=== PATIENT | female | born 1955 | race Caucasian/White ===

== ENCOUNTER → 2018-08-02 | Outpatient (CLI) | payer MEDICARE, MEDICAID ==
[~2018-08-02] MED LIST: MOTRIN800 MG PO; VICODIN 5/500 505 MG PO
== END | disposition home or self-care (01) ==
LOC: RAD 14:52
DX: Z01.818 Encounter for other preprocedural examination (principal); J43.9 Emphysema, unspecified; I11.0 Hypertensive heart disease with heart failure; I50.9 Heart failure, unspecified; E11.9 Type 2 diabetes mellitus without complications; Z87.891 Personal history of nicotine dependence

== ENCOUNTER 2019-11-10 12:19 | Emergency (ER) | payer OTHER ==
[~2019-11-10] VITALS: Ht 165.1 cm; Wt 95.3 kg
[2019-11-10] MEDS ORDERED: METHOCARBAMOL500 M1 PO (14:33)
[2019-11-10] MEDS ORDERED: MEDROL DOSEPAK4 MG PO (14:33)
== END 2019-11-10 15:40 | disposition home or self-care (01) ==
LOC: ED 12:19
DX: S76.012A Strain of muscle, fascia and tendon of left hip, initial encounter (principal); M54.5 Low back pain; I11.0 Hypertensive heart disease with heart failure; I50.9 Heart failure, unspecified; Z88.0 Allergy status to penicillin; Z88.8 Allergy status to other drugs, medicaments and biological substances; W01.0XXA Fall on same level from slipping, tripping and stumbling without subsequent striking against object, initial encounter; Y93.01 Activity, walking, marching and hiking; Y92.89 Other specified places as the place of occurrence of the external cause; Y99.8 Other external cause status

== ENCOUNTER 2020-02-03 08:58 | Inpatient (IN) | payer OTHER ==
[~2020-02-03] VITALS: Ht 167.6 cm; Wt 99.0 kg
[~2020-02-03 08:58] MED LIST changes: +MEDROL DOSEPAK4 MG PO; +METHOCARBAMOL500 M1 PO
[2020-02-03 09:01] VITALS: BP 126/55
[2020-02-03 09:29] LABS: BASO # 0.1 10*3/uL (0.0-0.1); BASO % 0.6 % (0.0-1.0); EOS % 8.9 % (1.0-4.0); HEMOGLOBIN 11.9 g/dl (12.0-16.0); LYMPH # 2.8 10*3/uL (1.3-4.4); LYMPH % 25.6 % (27.0-41.0); MEAN CELL VOLUME 97.4 fl (81.0-99.0); MEAN CORPUSCULAR HGB 30.5 pg (27.0-31.0); MEAN CORPUSCULAR HGB CONC 31.3 g/dl (33.0-37.0); MEAN PLATELET VOLUME 9.3 fl (9.6-12.3); MONO # 0.5 10*3/uL (0.1-1.0); MONO % 4.7 % (3.0-9.0); NEUT # 6.6 10*3/uL (2.3-7.9); NEUT % 59.7 % (47.0-73.0); PLATELET COUNT AUTOMATED 259 10*3/uL (130-400); RED CELL DISTRI WIDTH 13.5 % (0-14.5)
[2020-02-03 09:39] LABS: ACT PARTIAL THROMBO TIME 24.4 SECONDS (20.0-32.1)
[2020-02-03 09:46] LABS: ALBUMIN 3.5 gm/dl (3.1-4.5); ALKALINE PHOSPHATASE 104 U/L (45-117); BUN 15 mg/dl (7-24); CHLORIDE 111 mmol/L (98-107); CREATININE 1.16 mg/dL (0.55-1.02); POTASSIUM 4.3 mmol/L (3.5-5.1); SGOT/AST 44 IU/L (3-35); SGPT/ALT 38 U/L (12-78); SODIUM 143 mmol/L (136-145); TOTAL PROTEIN 6.9 gm/dL (6.4-8.2)
[2020-02-03 09:47] LABS: TROPONIN I < 0.015 ng/ml (<0.045)
[2020-02-03 10:30] VITALS: BP 121/78
[2020-02-03] MEDS ORDERED: PREDNISONE20 M1 PO (11:09)
[2020-02-03] MEDS ORDERED: VIBRAMYCIN100 MG PO (11:10)
[2020-02-03] MEDS ORDERED: NORCO 10-325 T1 EACH PO (11:11)
[2020-02-03 11:30] VITALS: BP 128/71
[2020-02-03 12:40] VITALS: BP 160/78
[2020-02-03] MEDS ORDERED: PROVENTIL HFA6.7 GM INH (13:16)
[2020-02-03] MEDS ORDERED: WELLBUTRIN SR150 MG PO (13:16)
[2020-02-03] MEDS ORDERED: ALLOPURINOL300 MG PO (13:17)
[2020-02-03] MEDS ORDERED: LITHIUM CARBON300 MG PO (13:17)
[2020-02-03] MEDS ORDERED: BUSPAR5 MG PO (13:18)
[2020-02-03] MEDS ORDERED: CELEXA20 MG PO (13:18)
[2020-02-03] MEDS ORDERED: METOPROLOL SUC100 M1 PO (13:18)
[2020-02-03] MEDS ORDERED: ASPIRIN ADULT L81 M1 PO (13:19)
[2020-02-03] MEDS ORDERED: COZAAR25 M1 PO (13:19)
[2020-02-03] MEDS ORDERED: LASIX20 MG PO (13:23)
[2020-02-03] MEDS ORDERED: POTASSIUM CHLO20 ME3 PO (13:24)
[2020-02-03] MEDS ORDERED: GLIPIZIDE10 M2 PO (13:28)
[2020-02-03 16:00] VITALS: BP 130/48
[2020-02-03 20:00] VITALS: BP 141/51
[2020-02-04] VITALS: BP 136/55
[2020-02-04 06:02] LABS: ALBUMIN 3.4 gm/dl (3.1-4.5); ALKALINE PHOSPHATASE 86 U/L (45-117); BASO % 0.1 % (0.0-1.0); BUN 15 mg/dl (7-24); CHLORIDE 109 mmol/L (98-107); CREATININE 0.99 mg/dL (0.55-1.02); HEMATOCRIT 35.5 % (37.0-47.0); HEMOGLOBIN 11.5 g/dl (12.0-16.0); LYMPH # 1.8 10*3/uL (1.3-4.4); LYMPH % 11.9 % (27.0-41.0); MEAN CELL VOLUME 94.9 fl (81.0-99.0); MEAN CORPUSCULAR HGB 30.7 pg (27.0-31.0); MEAN CORPUSCULAR HGB CONC 32.4 g/dl (33.0-37.0); MEAN PLATELET VOLUME 9.6 fl (9.6-12.3); MONO # 0.5 10*3/uL (0.1-1.0); MONO % 3.5 % (3.0-9.0); NEUT # 12.6 10*3/uL (2.3-7.9); NEUT % 83.8 % (47.0-73.0); PLATELET COUNT AUTOMATED 293 10*3/uL (130-400); POTASSIUM 4.4 mmol/L (3.5-5.1); RED BLOOD COUNT 3.74 10*6/uL (4.10-5.10); RED CELL DISTRI WIDTH 13.4 % (0-14.5); SGOT/AST 21 IU/L (3-35); SGPT/ALT 32 U/L (12-78); SODIUM 141 mmol/L (136-145); TOTAL PROTEIN 6.7 gm/dL (6.4-8.2); WHITE BLOOD COUNT 15.1 10*3/uL (4.8-10.8)
[2020-02-04 08:00] VITALS: BP 132/60
[2020-02-04 12:00] VITALS: BP 134/62
[2020-02-04 16:00] VITALS: BP 128/66
[2020-02-04 20:00] VITALS: BP 115/59
[2020-02-04 21:01] VITALS: BP 138/74
[2020-02-05] VITALS: BP 140/68
[2020-02-05 05:53] VITALS: BP 134/70
[2020-02-05 06:50] LABS: BASO % 0.2 % (0.0-1.0); EOS % 0.1 % (1.0-4.0); HEMATOCRIT 36.2 % (37.0-47.0); HEMOGLOBIN 11.6 g/dl (12.0-16.0); LYMPH # 2.8 10*3/uL (1.3-4.4); LYMPH % 13.9 % (27.0-41.0); MEAN CELL VOLUME 95.5 fl (81.0-99.0); MEAN CORPUSCULAR HGB 30.6 pg (27.0-31.0); MEAN PLATELET VOLUME 9.4 fl (9.6-12.3); NEUT % 80.1 % (47.0-73.0); PLATELET COUNT AUTOMATED 299 10*3/uL (130-400); RED BLOOD COUNT 3.79 10*6/uL (4.10-5.10); RED CELL DISTRI WIDTH 13.5 % (0-14.5)
[2020-02-05 06:55] LABS: BUN 26 mg/dl (7-24); CHLORIDE 109 mmol/L (98-107); CREATININE 0.99 mg/dL (0.55-1.02); POTASSIUM 4.2 mmol/L (3.5-5.1); SODIUM 138 mmol/L (136-145)
[2020-02-05 08:00] VITALS: BP 145/52
[2020-02-05] MEDS ORDERED: PREDNISONE10 MG PO (11:57)
[2020-02-05] MEDS ORDERED: LEVAQUIN500 M2 PO (11:57)
[2020-02-05] MEDS ORDERED: CETIRIZINE HYDR10 MG PO (11:57)
[2020-02-05] MEDS ORDERED: Ipratropium Brom3 ML NEB (11:57)
[2020-02-05 12:00] VITALS: BP 136/60
== END 2020-02-05 13:00 | disposition home or self-care (01) | DRG 682 ==
LOC: ED 08:58 → EDHOLD 11:46 → 4E 11:46
PROVIDERS: Emergency Medicine; Student in an Organized Health Care Education/Training Program; ADMIT Internal Medicine
DX: N17.0 Acute kidney failure with tubular necrosis (principal); J96.01 Acute respiratory failure with hypoxia; J44.1 Chronic obstructive pulmonary disease with (acute) exacerbation; I50.22 Chronic systolic (congestive) heart failure; E87.8 Other disorders of electrolyte and fluid balance, not elsewhere classified; F32.9 Major depressive disorder, single episode, unspecified; R74.0 Nonspecific elevation of levels of transaminase and lactic acid dehydrogenase [LDH]; M54.2 Cervicalgia; G89.29 Other chronic pain; E66.9 Obesity, unspecified; E11.65 Type 2 diabetes mellitus with hyperglycemia; F41.9 Anxiety disorder, unspecified; M10.9 Gout, unspecified; F43.10 Post-traumatic stress disorder, unspecified; F17.210 Nicotine dependence, cigarettes, uncomplicated; D64.9 Anemia, unspecified; Z88.0 Allergy status to penicillin; Z88.8 Allergy status to other drugs, medicaments and biological substances; Z79.899 Other long term (current) drug therapy; Z82.49 Family history of ischemic heart disease and other diseases of the circulatory system; Z79.82 Long term (current) use of aspirin; Z71.6 Tobacco abuse counseling; Z68.34 Body mass index [BMI] 34.0-34.9, adult

== ENCOUNTER 2020-03-30 22:16 | Inpatient (IN) | payer OTHER ==
[~2020-03-30] VITALS: Ht 170.1 cm; Wt 96.2 kg
[~2020-03-30 22:16] MED LIST changes: +ALLOPURINOL300 MG PO; +ASPIRIN ADULT L81 M1 PO; +BUSPAR5 MG PO; +CELEXA20 MG PO; +CETIRIZINE HYDR10 MG PO; +COZAAR25 M1 PO; +GLIPIZIDE10 M2 PO; +Ipratropium Brom3 ML NEB; +LASIX20 MG PO; +LEVAQUIN500 M2 PO; +LITHIUM CARBON300 MG PO; +METOPROLOL SUC100 M1 PO; +NORCO 10-325 T1 EACH PO; +POTASSIUM CHLO20 ME3 PO; +PREDNISONE10 MG PO; +PREDNISONE20 M1 PO; +PROVENTIL HFA6.7 GM INH; +VIBRAMYCIN100 MG PO; +WELLBUTRIN SR150 MG PO
--- NOTE | 2020-03-30 22:18 | NUR ---
Pt placed on BiPap 12/5 and FiO2 50%. RR are in the MID 30's. Double duoneb tx started through the BiPap. BBS wheeze
[2020-03-30 22:25] VITALS: BP 164/69
[2020-03-30 22:56] LABS: BASO # 0.1 10*3/uL (0.0-0.1); BASO % 0.7 % (0.0-1.0); EOS # 1.5 10*3/uL (0.0-0.4); EOS % 9.9 % (1.0-4.0); HEMATOCRIT 36.1 % (37.0-47.0); LYMPH # 3.1 10*3/uL (1.3-4.4); LYMPH % 20.8 % (27.0-41.0); MEAN CORPUSCULAR HGB 31.5 pg (27.0-31.0); MEAN CORPUSCULAR HGB CONC 32.4 g/dl (33.0-37.0); MEAN PLATELET VOLUME 9.4 fl (9.6-12.3); MONO # 0.7 10*3/uL (0.1-1.0); MONO % 4.6 % (3.0-9.0); NEUT # 9.4 10*3/uL (2.3-7.9); NEUT % 63.5 % (47.0-73.0); PLATELET COUNT AUTOMATED 269 10*3/uL (130-400); RED BLOOD COUNT 3.72 10*6/uL (4.10-5.10); RED CELL DISTRI WIDTH 14.2 % (0-14.5); WHITE BLOOD COUNT 14.9 10*3/uL (4.8-10.8)
[2020-03-30 23:05] VITALS: BP 168/80
[2020-03-30 23:13] LABS: ALKALINE PHOSPHATASE 100 U/L (45-117); BUN 26 mg/dl (7-24); CHLORIDE 107 mmol/L (98-107); CREATININE 1.07 mg/dL (0.55-1.02); POTASSIUM 4.1 mmol/L (3.5-5.1); SGOT/AST 40 IU/L (3-35); SGPT/ALT 40 U/L (12-78); SODIUM 141 mmol/L (136-145)
[2020-03-30 23:15] LABS: TROPONIN I < 0.015 ng/ml (<0.045)
[2020-03-30 23:16] LABS: ACT PARTIAL THROMBO TIME 22.6 SECONDS (20.0-32.1)
[2020-03-30 23:30] LABS: ABG BASE EXCESS -2.5 mmol/L (-2.0-2.0); ARTERIAL BLOOD GAS PH 7.302 (7.35-7.45)
--- NOTE | 2020-03-30 23:37 | NUR ---
SLEEPING. IN NO APPARENT DISTRESS.
[2020-03-31] VITALS: BP 116/61
--- NOTE | 2020-03-31 00:24 | NUR ---
DECREASED O2 TO 35%. SPO2 97, HR 68, BIPAP 12/5, VT575, F16, LEAK 11. WILL CONTINUE TO MONITOR
[2020-03-31 01:00] VITALS: BP 116/61
--- NOTE | 2020-03-31 01:00 | NUR ---
A 64, admitted to , under the services of MORRO Sharp DO with a diagnosis of RESPIRATORY FAILURE, COPD EXACERBATION ACUTE ON CHRONIC. Chief complaint is SHORTNESS OF BREATH/WHEEZING. Patient arrived via ambulance from ER. Monitor applied. Initial assessment completed. Vital signs taken and recorded. MORRO SHARP DO notified of admission to the unit. Orders received. See assessment for past medical history, medications and allergies. Patient and/or family oriented to unit. visitation policy reviewed. Clothing/patient valuable form completed. LOUISE BAE
[2020-03-31 06:00] LABS: BUN 27 mg/dl (7-24); CHLORIDE 110 mmol/L (98-107); CREATININE 1.09 mg/dL (0.55-1.02); POTASSIUM 4.7 mmol/L (3.5-5.1); SODIUM 141 mmol/L (136-145)
[2020-03-31 06:14] LABS: BASO % 0.3 % (0.0-1.0); EOS # 0.1 10*3/uL (0.0-0.4); EOS % 0.4 % (1.0-4.0); HEMATOCRIT 34.4 % (37.0-47.0); LYMPH # 1.3 10*3/uL (1.3-4.4); LYMPH % 10.4 % (27.0-41.0); MEAN CELL VOLUME 97.5 fl (81.0-99.0); MEAN CORPUSCULAR HGB 31.2 pg (27.0-31.0); MEAN PLATELET VOLUME 9.8 fl (9.6-12.3); MONO # 0.1 10*3/uL (0.1-1.0); MONO % 0.7 % (3.0-9.0); NEUT # 11.2 10*3/uL (2.3-7.9); NEUT % 87.8 % (47.0-73.0); PLATELET COUNT AUTOMATED 242 10*3/uL (130-400); RED BLOOD COUNT 3.53 10*6/uL (4.10-5.10); RED CELL DISTRI WIDTH 14.1 % (0-14.5); WHITE BLOOD COUNT 12.7 10*3/uL (4.8-10.8)
--- NOTE | 2020-03-31 06:31 | NUR ---
ATTEMPTED TO CONSULT DR. SALAZAR FOR CONSULT WITH NO ANSWER. LEFT MESSAGE FOR HIM TO RETURN CALL.
[2020-03-31 08:00] VITALS: BP 128/70
--- NOTE | 2020-03-31 09:00 | NUR ---
BIPAP REMOVED FOR MEDICATION ADMINISTRATION/SIPS OF WATER. POX DOWN FROM 94% TO 87% ROOM AIR. PLACED BIPAP BACK ON, POX UP TO 93%.
--- NOTE | 2020-03-31 10:00 | NUR ---
PRN PO TYLENOL NOT EFFECTIVE FOR HEADACHE, PER PATIENT.
--- NOTE | 2020-03-31 10:27 | NUR ---
BIPAP REMOVED FOR BREAKFAST. APPLIED 3L NC O2, POX 97% DURING BREAKFAST.
--- NOTE | 2020-03-31 11:49 | NUR ---
PER PATIENT, HEADACHE IS GETTING WORSE. C/O MIGRAINE PAIN TO RIGHT SIDE OF HEAD AND THROBBING, PHONING PHYSICIAN FOR ORDERS.
[2020-03-31 12:00] VITALS: BP 126/56
--- NOTE | 2020-03-31 12:12 | NUR ---
MEDICATED WITH PRN PO FIORCET FOR MIGRAINE HEADACHE PAIN.
--- NOTE | 2020-03-31 13:00 | NUR ---
PRN PO FIORCET NOT EFFECTIVE AT ALL, PER PATIENT.
[2020-03-31 13:41] LABS: ABG BASE EXCESS -3.4 mmol/L (-2.0-2.0); ARTERIAL BLOOD GAS PH 7.362 (7.35-7.45)
--- NOTE | 2020-03-31 15:53 | NUR ---
ADMINISTERED IV BENADRYL WITH IV TORADOL AND STARTED 2GM MAG RUN FOR MIGRAINE HEADACHE SYMPTOMS AT THIS TIME.
[2020-03-31 16:00] VITALS: BP 126/54
[2020-03-31 16:10] LABS: ARTERIAL BLOOD GAS PH 7.353 (7.35-7.45)
--- NOTE | 2020-03-31 18:24 | NUR ---
SPOKE WITH DR HALL REGARDING ORDER ON EMAR.ORDER RECIEVED.
--- NOTE | 2020-03-31 18:50 | NUR ---
Patient resting quietly with no c/o discomfort. Respirations easy and regular. Vital signs stable. No overt distress. CATRINA PAL
[2020-03-31 20:00] VITALS: BP 125/59
--- NOTE | 2020-03-31 22:58 | NUR ---
PATIENT MEDICATED WITH A ONE TIME DOSE OF MORPHINE FOR COMPLAINTS OF A HEADACHE. WILL MONITOR FOR EFFECTIVENESS. CALL LIGHT IN REACH.
--- NOTE | 2020-03-31 23:42 | NUR ---
MORPHINE EFFECTIVE AT THIS TIME. PATIENT IN BED WITH EYES CLOSED ON BIPAP. NO SIGNS OR SYMPTOMS OF DISTRESS NOTED. WILL CONTINUE TO MONITOR. CALL LIGHT IN REACH.
[2020-04-01] VITALS: BP 121/58
[2020-04-01 02:30] VITALS: BP 124/59
--- NOTE | 2020-04-01 02:38 | NUR ---
DR. NGUYEN NOTIFIED THAT PATIENT IS COMPLAINING OF CHEST PAIN RATED 4/10. CO BELCHING AND PAIN WORSE WHEN BREATHING IN. O2 SAT 94% ON 3L 02 N/C, B/P 124/59. DR. NGUYEN PUTTING ORDERS IN.
[2020-04-01 06:09] LABS: BUN 24 mg/dl (7-24); CHLORIDE 111 mmol/L (98-107); CREATININE 0.95 mg/dL (0.55-1.02); POTASSIUM 4.8 mmol/L (3.5-5.1); SODIUM 141 mmol/L (136-145)
[2020-04-01 06:18] LABS: BASO % 0.1 % (0.0-1.0); HEMATOCRIT 36.4 % (37.0-47.0); LYMPH # 1.9 10*3/uL (1.3-4.4); LYMPH % 9.2 % (27.0-41.0); MEAN CELL VOLUME 98.1 fl (81.0-99.0); MEAN CORPUSCULAR HGB CONC 31.6 g/dl (33.0-37.0); MEAN PLATELET VOLUME 9.7 fl (9.6-12.3); MONO # 1.2 10*3/uL (0.1-1.0); MONO % 5.7 % (3.0-9.0); NEUT # 17.7 10*3/uL (2.3-7.9); NEUT % 84.4 % (47.0-73.0); PLATELET COUNT AUTOMATED 311 10*3/uL (130-400); RED BLOOD COUNT 3.71 10*6/uL (4.10-5.10); RED CELL DISTRI WIDTH 14.3 % (0-14.5)
--- NOTE | 2020-04-01 07:00 | NUR ---
ASSUMED CARE OF PATIENT AT THIS TIME. RESPS EASY AND REGULAR. ASSESSMENT COMPLETE. VSS. BIPAP IN PLACE. CALL LIGHT IN REACH. WILL MONITOR.
--- NOTE | 2020-04-01 07:30 | NUR ---
PLACED PT ON BIPAP PER HER REQUEST TO GIVE HER HER AEROSOL TX.
[2020-04-01 08:00] VITALS: BP 130/64
--- NOTE | 2020-04-01 09:00 | NUR ---
Elementary E[employer] Teacher in to talk to patient. Patient states lives at home with daughter. There are no steps in the home. Physician: ravin benitez, patient wants to have an appointment with [facility] Home health services: none at present Patient's level of ADLs: INDEPENDENT Patient has working utilities: all working DME: nebulizer, no home oxygen Follow-up physician's appointment after d/c: will be made by hospitalist nurse director upon discharge Does patient want to access PORTAL?: no Discharge plan discussed with patient, she states she lives at home with her daughter, patient is independent in adls and ambulation, she states she has anebulizer, no home oxygen, she will return home when medically stable, patient states her daughter will transport her home when she is medically stable for discharge. KEITH GONZALEZ
[2020-04-01 12:00] VITALS: BP 148/68
--- NOTE | 2020-04-01 12:57 | NUR ---
PT RESTING IN BED WITH NO COMPLAINTS. CALL LIGHT IN REACH. WILL CONTINUE TO MONITOR.
--- NOTE | 2020-04-01 13:47 | NUR ---
PT RESTING IN BED WITH NO COMPLAINTS AT THIS TIME. CALL LIGHT IN REACH. WILL MONITOR.
--- NOTE | 2020-04-01 15:12 | NUR ---
24 HR chart check completed.
[2020-04-01 16:00] VITALS: BP 125/50
--- NOTE | 2020-04-01 19:29 | NUR ---
24 HR chart check completed.
[2020-04-01 20:00] VITALS: BP 116/47
--- NOTE | 2020-04-01 20:00 | NUR ---
ASSESSED PT AND FOUND HER RIGHT ANTECUBITCAL TO BE SWOLLEN, BRUISED, AND HARDENED. PT STATED THAT'S WHERE HER LAST IV SITE WAS. OFFERED HER ICE AND PT STATED SHE DID NOT WANT ANY ICE AT THIS TIME. WILL CONTINUE TO MONITOR PT'S ARM.
--- NOTE | 2020-04-01 20:08 | NUR ---
PRN TYLENOL GIVEN FOR COMPLAINT OF A HEADACHE. WILL CONTINUE TO MONITOR EFFECTIVENESS.
--- NOTE | 2020-04-01 21:08 | NUR ---
PRN TYLENOL WAS NOT EFFECTIVE. WILL CALL DR. GLEZ AND SEE IF ANYTHING ELSE COULD BE GIVEN.
--- NOTE | 2020-04-01 22:17 | NUR ---
CALLED AND NOTIFIED DR. GLEZ THAT PT HAS A HEADACHE AND TYLENOL HAS NOT HELPED HER AT ALL. HE STATED HE WOULD TAKE A LOOK AT HER CHART AND SEE WHAT HE COULD GIVE HER. AWAITING ORDERS.
--- NOTE | 2020-04-01 22:25 | NUR ---
ONE TIME DOSE TORADOL GIVEN FOR A HEADACHE. WILL REASSESS EFFECTIVENESS.
--- NOTE | 2020-04-01 22:45 | NUR ---
Pt placed on BiPap 16/8 and FiO2 35%. Alarms on and audible.
--- NOTE | 2020-04-01 22:59 | NUR ---
PT STATED THAT THE TORADOL HAS HELPED HER HEADACHE. SHE SAID IT DOES NOT HURT BAD. ONE TIME DOSE OF TORADOL WAS EFFECTIVE.
[2020-04-02] VITALS: BP 128/55
--- NOTE | 2020-04-02 00:07 | NUR ---
PATIENT SLEEPING. WEARING BIPAP, ON CONTINUOUS POX, SPO2 99%. CALL LIGHT IN REACH, BED IN LOW, LOCKED POS.
[2020-04-02 08:00] VITALS: BP 154/84
--- NOTE | 2020-04-02 08:42 | NUR ---
MEDICATED WITH PRN PO TYLENOL FOR C/O HEADACHE.
--- NOTE | 2020-04-02 09:00 | NUR ---
case management visits with patient, discussed with her VNA and educated her ont he services they provide, patient states she does not need any VNA at this time, case management will follow
--- NOTE | 2020-04-02 09:25 | NUR ---
PRN PO TYLENOL NOT EFFECTIVE, PER PATIENT.
[2020-04-02 12:00] VITALS: BP 147/70
--- NOTE | 2020-04-02 13:00 | NUR ---
PULSE OX ON R/A AT REST 92%. HEART RATE 85. PULSE OX ON R/A WITH PT. AMBULATING IN [place] WAS 89% TO 91%. HEART RATE 103. PT. RETURNED TO ROOM, RESTING ON BED R/A, SAT 93%, HEART RATE 100. PRE B/P 147/70, POST B/P 149/57, JACE STEWART AND RN NOTIFIED OF RESULTS.
[2020-04-02 13:25] LABS: BASO % 0.2 % (0.0-1.0); EOS % 0.2 % (1.0-4.0); HEMATOCRIT 37.2 % (37.0-47.0); LYMPH # 1.6 10*3/uL (1.3-4.4); LYMPH % 11.6 % (27.0-41.0); MEAN CELL VOLUME 98.2 fl (81.0-99.0); MEAN CORPUSCULAR HGB 31.1 pg (27.0-31.0); MEAN CORPUSCULAR HGB CONC 31.7 g/dl (33.0-37.0); MEAN PLATELET VOLUME 9.5 fl (9.6-12.3); MONO # 0.2 10*3/uL (0.1-1.0); MONO % 1.4 % (3.0-9.0); NEUT % 85.8 % (47.0-73.0); PLATELET COUNT AUTOMATED 265 10*3/uL (130-400); RED BLOOD COUNT 3.79 10*6/uL (4.10-5.10); RED CELL DISTRI WIDTH 14.7 % (0-14.5)
[2020-04-02] MEDS ORDERED: LEVAQUIN750 M1 PO (14:33)
[2020-04-02] MEDS ORDERED: PREDNISONE10 MG PO (14:33)
--- NOTE | 2020-04-02 15:33 | NUR ---
Discharge instructions reviewed with patient. Patient receptive and verbalizes understanding. Follow-up care arranged. Written instructions given to patient. PATIENT AWAITING RIDE HOME WITH HER DAUGHTER FOR DISCHARGE. ITZEL SADLER
--- NOTE | 2020-04-02 16:00 | NUR ---
PATIENT DISCHARGED TO FRONT ED LOBBY BY WHEELCHAIR, ACCOMPANIED BY [facility], FOR TRANSPORT HOME BY PRIVATE VEHICLE WITH HER DAUGHTER.
[2020-04-03] MEDS ORDERED: DOXYCYCLINE100 M3 PO (15:10)
== END 2020-04-02 15:34 | disposition home or self-care (01) | DRG 871 ==
LOC: ED 22:16 → EDHOLD 03-31 00:22 → 4E 03-31 00:22
PROVIDERS: Emergency Medicine Emergency Medical Services; Internal Medicine; Internal Medicine Critical Care Medicine; ADMIT Internal Medicine
PROC: 5A09357 Assistance with Respiratory Ventilation, Less than 24 Consecutive Hours, Continuous Positive Airway Pressure (ICD-10-PCS; principal; 2020-03-30)
PROC: 5A09357 Assistance with Respiratory Ventilation, Less than 24 Consecutive Hours, Continuous Positive Airway Pressure (ICD-10-PCS; 2020-03-31)
PROC: 5A09357 Assistance with Respiratory Ventilation, Less than 24 Consecutive Hours, Continuous Positive Airway Pressure (ICD-10-PCS; 2020-04-01)
PROC: 5A09357 Assistance with Respiratory Ventilation, Less than 24 Consecutive Hours, Continuous Positive Airway Pressure (ICD-10-PCS; 2020-04-02)
DX: A41.9 Sepsis, unspecified organism (principal); J96.21 Acute and chronic respiratory failure with hypoxia; J96.22 Acute and chronic respiratory failure with hypercapnia; J15.212 Pneumonia due to Methicillin resistant Staphylococcus aureus; J44.1 Chronic obstructive pulmonary disease with (acute) exacerbation; E87.2 Acidosis; I50.22 Chronic systolic (congestive) heart failure; J44.0 Chronic obstructive pulmonary disease with (acute) lower respiratory infection; R65.20 Severe sepsis without septic shock; E11.65 Type 2 diabetes mellitus with hyperglycemia; E83.41 Hypermagnesemia; G89.29 Other chronic pain; M54.2 Cervicalgia; F32.9 Major depressive disorder, single episode, unspecified; R74.0 Nonspecific elevation of levels of transaminase and lactic acid dehydrogenase [LDH]; F43.10 Post-traumatic stress disorder, unspecified; E66.9 Obesity, unspecified; Z68.33 Body mass index [BMI] 33.0-33.9, adult; Z95.810 Presence of automatic (implantable) cardiac defibrillator; Z88.0 Allergy status to penicillin; Z88.8 Allergy status to other drugs, medicaments and biological substances; Z98.51 Tubal ligation status; Z82.49 Family history of ischemic heart disease and other diseases of the circulatory system; Z79.899 Other long term (current) drug therapy; Z79.84 Long term (current) use of oral hypoglycemic drugs

== ENCOUNTER 2020-06-02 20:05 | Emergency (ER) | payer OTHER ==
[~2020-06-02] VITALS: Ht 167.6 cm; Wt 90.7 kg
[~2020-06-02 20:05] MED LIST changes: +DOXYCYCLINE100 M3 PO; +LEVAQUIN750 M1 PO
[2020-06-02 21:07] LABS: BASO # 0.1 10*3/uL (0.0-0.1); BASO % 0.7 % (0.0-1.0); EOS # 1.1 10*3/uL (0.0-0.4); HEMATOCRIT 34.4 % (37.0-47.0); LYMPH # 2.9 10*3/uL (1.3-4.4); LYMPH % 26.5 % (27.0-41.0); MEAN CELL VOLUME 95.6 fl (81.0-99.0); MEAN CORPUSCULAR HGB 31.4 pg (27.0-31.0); MEAN CORPUSCULAR HGB CONC 32.8 g/dl (33.0-37.0); MEAN PLATELET VOLUME 9.4 fl (9.6-12.3); MONO # 0.6 10*3/uL (0.1-1.0); MONO % 5.4 % (3.0-9.0); NEUT # 6.2 10*3/uL (2.3-7.9); NEUT % 57.2 % (47.0-73.0); PLATELET COUNT AUTOMATED 266 10*3/uL (130-400); RED CELL DISTRI WIDTH 13.5 % (0-14.5); WHITE BLOOD COUNT 10.9 10*3/uL (4.8-10.8)
[2020-06-02 21:17] LABS: ACT PARTIAL THROMBO TIME 24.5 SECONDS (20.0-32.1); INTERNATIONAL NORM RATIO 0.9 (2.0-3.5)
[2020-06-02 21:23] LABS: ALBUMIN 3.7 gm/dl (3.1-4.5); ALKALINE PHOSPHATASE 92 U/L (45-117); BUN 26 mg/dl (7-24); CHLORIDE 110 mmol/L (98-107); CREATININE 1.22 mg/dL (0.55-1.02); LIPASE 171 U/L (73-393); POTASSIUM 3.9 mmol/L (3.5-5.1); SGOT/AST 22 IU/L (3-35); SGPT/ALT 27 U/L (12-78); SODIUM 142 mmol/L (136-145); TOTAL PROTEIN 6.6 gm/dL (6.4-8.2)
[2020-06-02 21:26] LABS: TROPONIN I < 0.015 ng/ml (<0.045)
[2020-06-03] MEDS ORDERED: DOXYCYCLINE100 M3 PO (00:43)
[2020-06-03] MEDS ORDERED: PREDNISONE10 MG PO (00:43)
== END 2020-06-03 01:34 | disposition home or self-care (01) ==
LOC: ED 20:05
PROVIDERS: Nurse Practitioner Family
DX: J40 Bronchitis, not specified as acute or chronic (principal); E11.9 Type 2 diabetes mellitus without complications; M10.9 Gout, unspecified; E66.9 Obesity, unspecified; I50.9 Heart failure, unspecified; I11.0 Hypertensive heart disease with heart failure; J44.9 Chronic obstructive pulmonary disease, unspecified; F17.200 Nicotine dependence, unspecified, uncomplicated; Z88.0 Allergy status to penicillin; Z88.8 Allergy status to other drugs, medicaments and biological substances; Z91.040 Latex allergy status; Z79.899 Other long term (current) drug therapy; Z79.82 Long term (current) use of aspirin; Z68.34 Body mass index [BMI] 34.0-34.9, adult

== ENCOUNTER → 2020-06-07 | Outpatient (CLI) | payer OTHER | END | disposition home or self-care (01) | LOC: RESCLI 01:48 | DX: J44.1 Chronic obstructive pulmonary disease with (acute) exacerbation (principal); E11.65 Type 2 diabetes mellitus with hyperglycemia; I11.0 Hypertensive heart disease with heart failure; I50.22 Chronic systolic (congestive) heart failure; E66.09 Other obesity due to excess calories; F32.9 Major depressive disorder, single episode, unspecified; F41.9 Anxiety disorder, unspecified; M1A.40X0 Other secondary chronic gout, unspecified site, without tophus (tophi); J30.2 Other seasonal allergic rhinitis; R22.1 Localized swelling, mass and lump, neck ==

== ENCOUNTER → 2020-06-17 | Outpatient (CLI) | payer OTHER ==
[~2020-06-17] MED LIST changes: +ANAPROX DS550 MG PO
== END | disposition home or self-care (01) ==
LOC: LAB 08:12
PROVIDERS: Hospitalist
DX: E11.65 Type 2 diabetes mellitus with hyperglycemia (principal); E66.09 Other obesity due to excess calories

== ENCOUNTER → 2020-06-18 | Outpatient (CLI) | payer OTHER | END | disposition home or self-care (01) | LOC: CP 14:17 | DX: J41.1 Mucopurulent chronic bronchitis (principal) ==

== ENCOUNTER 2020-06-19 18:01 | Emergency (ER) | payer OTHER ==
[~2020-06-19] VITALS: Ht 165.1 cm; Wt 96.6 kg
[~2020-06-19 18:01] MED LIST changes: -ANAPROX DS550 MG PO
[2020-06-19] MEDS ORDERED: ANAPROX DS550 MG PO (20:25)
[2020-06-19] MEDS ORDERED: METHOCARBAMOL500 M1 PO (20:25)
== END 2020-06-19 20:39 | disposition home or self-care (01) ==
LOC: ED 18:01
DX: S76.912A Strain of unspecified muscles, fascia and tendons at thigh level, left thigh, initial encounter (principal); Z88.0 Allergy status to penicillin; Z79.899 Other long term (current) drug therapy; Z79.82 Long term (current) use of aspirin; X58.XXXA Exposure to other specified factors, initial encounter; Y93.89 Activity, other specified; Y92.89 Other specified places as the place of occurrence of the external cause; Y99.8 Other external cause status

== ENCOUNTER 2020-06-28 10:55 | Emergency (ER) | payer OTHER ==
[~2020-06-28] VITALS: Ht 166.3 cm; Wt 96.2 kg
[~2020-06-28 10:55] MED LIST changes: +ANAPROX DS550 MG PO
[2020-06-28] MEDS ORDERED: ROBAXIN-750750 MG PO (15:40)
[2020-06-28] MEDS ORDERED: PREDNISONE20 M1 PO (15:40)
== END 2020-06-28 15:44 | disposition home or self-care (01) ==
LOC: ED 10:55
DX: M54.42 Lumbago with sciatica, left side (principal); F17.200 Nicotine dependence, unspecified, uncomplicated; Z88.0 Allergy status to penicillin; Z91.040 Latex allergy status; Z88.8 Allergy status to other drugs, medicaments and biological substances; Z79.899 Other long term (current) drug therapy; Z79.82 Long term (current) use of aspirin

== ENCOUNTER → 2020-07-03 | Outpatient (CLI) | payer OTHER ==
[~2020-07-03] MED LIST changes: +ROBAXIN-750750 MG PO
== END | disposition home or self-care (01) ==
LOC: RESCLI 09:26
DX: M54.32 Sciatica, left side (principal); I11.0 Hypertensive heart disease with heart failure; I50.22 Chronic systolic (congestive) heart failure; F41.9 Anxiety disorder, unspecified; E11.65 Type 2 diabetes mellitus with hyperglycemia; M1A.40X0 Other secondary chronic gout, unspecified site, without tophus (tophi); J44.9 Chronic obstructive pulmonary disease, unspecified; J30.2 Other seasonal allergic rhinitis; F32.9 Major depressive disorder, single episode, unspecified; Z79.899 Other long term (current) drug therapy; Z98.890 Other specified postprocedural states; Z87.891 Personal history of nicotine dependence; Z88.8 Allergy status to other drugs, medicaments and biological substances

== ENCOUNTER → 2020-07-09 | Outpatient (CLI) | payer OTHER | END | disposition home or self-care (01) | LOC: RESCLI 01:03 | PROVIDERS: ATTEND Internal Medicine | DX: M79.605 Pain in left leg (principal); M54.32 Sciatica, left side; J41.1 Mucopurulent chronic bronchitis; E11.65 Type 2 diabetes mellitus with hyperglycemia; E11.42 Type 2 diabetes mellitus with diabetic polyneuropathy; I50.22 Chronic systolic (congestive) heart failure; I11.0 Hypertensive heart disease with heart failure; E66.09 Other obesity due to excess calories; F31.9 Bipolar disorder, unspecified; F32.9 Major depressive disorder, single episode, unspecified; F41.9 Anxiety disorder, unspecified; M1A.40X0 Other secondary chronic gout, unspecified site, without tophus (tophi); J30.2 Other seasonal allergic rhinitis; G89.29 Other chronic pain; M25.562 Pain in left knee; Z79.899 Other long term (current) drug therapy; Z98.890 Other specified postprocedural states; Z95.0 Presence of cardiac pacemaker; Z87.891 Personal history of nicotine dependence; Z88.0 Allergy status to penicillin; Z88.8 Allergy status to other drugs, medicaments and biological substances ==

== ENCOUNTER 2020-07-21 11:15 | Emergency (ER) | payer OTHER ==
[~2020-07-21] VITALS: Ht 165.1 cm; Wt 97.5 kg
[2020-07-21] MEDS ORDERED: NORCO 5-325 TA1 EACH PO (11:48)
== END 2020-07-21 12:07 | disposition home or self-care (01) ==
LOC: ED 11:15
DX: S89.92XA Unspecified injury of left lower leg, initial encounter (principal); I13.0 Hypertensive heart and chronic kidney disease with heart failure and stage 1 through stage 4 chronic kidney disease, or unspecified chronic kidney disease; E11.22 Type 2 diabetes mellitus with diabetic chronic kidney disease; N18.3 Chronic kidney disease, stage 3 (moderate); J44.9 Chronic obstructive pulmonary disease, unspecified; M10.9 Gout, unspecified; E66.9 Obesity, unspecified; E78.00 Pure hypercholesterolemia, unspecified; F17.210 Nicotine dependence, cigarettes, uncomplicated; Z88.0 Allergy status to penicillin; Z88.1 Allergy status to other antibiotic agents; Z91.040 Latex allergy status; Z79.899 Other long term (current) drug therapy; Z79.82 Long term (current) use of aspirin; Z68.34 Body mass index [BMI] 34.0-34.9, adult; Z79.4 Long term (current) use of insulin; W18.39XA Other fall on same level, initial encounter; Y93.89 Activity, other specified; Y92.89 Other specified places as the place of occurrence of the external cause; Y99.8 Other external cause status

== ENCOUNTER → 2020-08-07 | Outpatient (CLI) | payer OTHER ==
[~2020-08-07] MED LIST changes: +NORCO 5-325 TA1 EACH PO
== END | disposition home or self-care (01) ==
LOC: RAD 15:06
PROVIDERS: ATTEND Orthopaedic Surgery
DX: M54.5 Low back pain (principal)

== ENCOUNTER → 2020-08-13 | Outpatient (CLI) | payer OTHER | END | disposition home or self-care (01) | LOC: RESCLI 06:04 | PROVIDERS: ATTEND Internal Medicine | DX: M54.32 Sciatica, left side (principal); J41.1 Mucopurulent chronic bronchitis; E11.65 Type 2 diabetes mellitus with hyperglycemia; E11.42 Type 2 diabetes mellitus with diabetic polyneuropathy; I11.0 Hypertensive heart disease with heart failure; I50.22 Chronic systolic (congestive) heart failure; E66.09 Other obesity due to excess calories; F31.9 Bipolar disorder, unspecified; F41.9 Anxiety disorder, unspecified; M1A.40X0 Other secondary chronic gout, unspecified site, without tophus (tophi); J30.2 Other seasonal allergic rhinitis; E78.2 Mixed hyperlipidemia; Z79.899 Other long term (current) drug therapy; Z98.890 Other specified postprocedural states; Z88.0 Allergy status to penicillin; Z88.8 Allergy status to other drugs, medicaments and biological substances ==

== ENCOUNTER → 2020-09-10 | Outpatient (CLI) | payer OTHER ==
[~2020-09-10] MED LIST changes: +AZITHROMYCIN500 M2 PO; +LOVASTATIN40 MG PO; +LYRICA50 M1 PO; +MUCUS RELIEF600 MG PO
[2020-09-10 09:06] LABS: BASO # 0.1 10*3/uL (0.0-0.1); BASO % 0.6 % (0.0-1.0); EOS # 0.8 10*3/uL (0.0-0.4); EOS % 6.2 % (1.0-4.0); HEMATOCRIT 37.1 % (37.0-47.0); LYMPH # 3.6 10*3/uL (1.3-4.4); LYMPH % 27.3 % (27.0-41.0); MEAN CELL VOLUME 98.4 fl (81.0-99.0); MEAN CORPUSCULAR HGB 30.5 pg (27.0-31.0); MEAN PLATELET VOLUME 9.7 fl (9.6-12.3); MONO # 0.7 10*3/uL (0.1-1.0); MONO % 5.6 % (3.0-9.0); NEUT # 7.8 10*3/uL (2.3-7.9); NEUT % 59.7 % (47.0-73.0); PLATELET COUNT AUTOMATED 327 10*3/uL (130-400); RED BLOOD COUNT 3.77 10*6/uL (4.10-5.10); RED CELL DISTRI WIDTH 13.7 % (0-14.5)
[2020-09-10 09:32] LABS: ALBUMIN 3.5 gm/dl (3.1-4.5); ALKALINE PHOSPHATASE 97 U/L (45-117); BILIRUBIN, DIRECT 0.2 mg/dL (0.0-0.2); BUN 20 mg/dl (7-24); CHLORIDE 111 mmol/L (98-107); CREATININE 1.08 mg/dL (0.55-1.02); FREE T4 0.94 ng/dl (0.76-1.46); POTASSIUM 4.4 mmol/L (3.5-5.1); SGOT/AST 30 IU/L (3-35); SGPT/ALT 51 U/L (12-78); SODIUM 142 mmol/L (136-145); T3 UPTAKE 33 % (31-39); TOTAL PROTEIN 6.7 gm/dL (6.4-8.2)
== END | disposition home or self-care (01) ==
LOC: LAB 07:57
PROVIDERS: ATTEND Nurse Practitioner Family
DX: Z79.899 Other long term (current) drug therapy (principal)

== ENCOUNTER 2020-09-12 06:09 | Inpatient (IN) | payer OTHER ==
[~2020-09-12] VITALS: Ht 165.1 cm; Wt 99.6 kg
[~2020-09-12 06:09] MED LIST changes: -AZITHROMYCIN500 M2 PO; -LOVASTATIN40 MG PO; -LYRICA50 M1 PO; -MUCUS RELIEF600 MG PO
[2020-09-12 06:20] VITALS: BP 160/71
[2020-09-12 06:40] LABS: BASO # 0.1 10*3/uL (0.0-0.1); BASO % 0.9 % (0.0-1.0); EOS % 7.4 % (1.0-4.0); HEMATOCRIT 36.9 % (37.0-47.0); LYMPH # 2.8 10*3/uL (1.3-4.4); LYMPH % 21.9 % (27.0-41.0); MEAN CELL VOLUME 98.1 fl (81.0-99.0); MEAN CORPUSCULAR HGB 30.9 pg (27.0-31.0); MEAN CORPUSCULAR HGB CONC 31.4 g/dl (33.0-37.0); MEAN PLATELET VOLUME 9.2 fl (9.6-12.3); MONO # 0.7 10*3/uL (0.1-1.0); MONO % 5.1 % (3.0-9.0); NEUT # 8.3 10*3/uL (2.3-7.9); NEUT % 64.2 % (47.0-73.0); PLATELET COUNT AUTOMATED 323 10*3/uL (130-400); RED BLOOD COUNT 3.76 10*6/uL (4.10-5.10); RED CELL DISTRI WIDTH 13.8 % (0-14.5); WHITE BLOOD COUNT 12.9 10*3/uL (4.8-10.8)
[2020-09-12 06:51] LABS: ACT PARTIAL THROMBO TIME 26.5 SECONDS (20.0-32.1); INTERNATIONAL NORM RATIO 0.9 (2.0-3.5)
[2020-09-12 06:57] LABS: ALBUMIN 3.6 gm/dl (3.1-4.5); ALKALINE PHOSPHATASE 101 U/L (45-117); BUN 17 mg/dl (7-24); CHLORIDE 110 mmol/L (98-107); POTASSIUM 4.6 mmol/L (3.5-5.1); SGOT/AST 40 IU/L (3-35); SGPT/ALT 49 U/L (12-78); SODIUM 141 mmol/L (136-145); TOTAL PROTEIN 6.8 gm/dL (6.4-8.2)
[2020-09-12 06:58] LABS: TROPONIN I < 0.015 ng/ml (<0.045)
--- NOTE | 2020-09-12 06:59 | NUR ---
PT DENIES ANY WOUNDS
--- NOTE | 2020-09-12 07:10 | NUR ---
REPORT RECEIVED FROM SARABJIT GEIGER AT THIS TIME.
[2020-09-12 07:37] VITALS: BP 122/61
--- NOTE | 2020-09-12 09:30 | NUR ---
A 65, admitted to 5E, under the services of LAUREEN Rodrigez DO with a diagnosis of COPD EXACERBATIONS. Chief complaint is SHORT OF BRETH COUGH. Patient arrived via stretcher from ER. Monitor applied. Initial assessment completed. Vital signs taken and recorded. LAUREEN RODRIGEZ DO notified of admission to the unit. Orders received. See assessment for past medical history, medications and allergies. Patient and/or family oriented to unit. [facility] visitation policy reviewed. Clothing/patient valuable form completed. JAZZMINE URIAS
[2020-09-12] MEDS ORDERED: LOVASTATIN40 MG PO (10:42)
[2020-09-12] MEDS ORDERED: LYRICA50 M1 PO (10:42)
[2020-09-12 12:00] VITALS: BP 124/59
--- NOTE | 2020-09-12 12:06 | NUR ---
PATIENT INSTRUCTED ON FLUTTER VALVE
--- NOTE | 2020-09-12 13:16 | NUR ---
MEDICATED WITH ONE TIME DOSE OF TORODOL FOR C/O OF HEADACHE AND REFUSES TYLENOL.
--- NOTE | 2020-09-12 14:00 | NUR ---
PHYSICAL THERAPY Physical Therapy evaluation completed on 5th floor with full evaluation to follow. Recommend physical therapy per plan of care and home w family and HH vs Out patient services upon discharge. Thank you for this referral. Dorita Evans PT
--- NOTE | 2020-09-12 14:00 | NUR ---
Occupational Therapy evaluation completed on 5 with full eval to follow. Precautions include new o2 use, IV UE, SOB w/ min exertion, low complexity level. Recommend OT per pOC and return home w/ family upon d/c with home health OT,PT,SN as indicated prior to d/c. Thank you. Crystal Stanford OTR/L
--- NOTE | 2020-09-12 14:10 | NUR ---
TORODOL DID NOT HELP.
--- NOTE | 2020-09-12 15:56 | NUR ---
MEDICATED WITH ONE TIME MOTRIN FOR H/A.
[2020-09-12 16:00] VITALS: BP 142/78
--- NOTE | 2020-09-12 16:30 | NUR ---
MOTRIN DID NOT REALLY HELP.
--- NOTE | 2020-09-12 18:07 | NUR ---
MEDICATED WITH ONE TIME ULTRAM FOR C/O HEADACHE NECK BACK PAIN.
--- NOTE | 2020-09-12 19:00 | NUR ---
ULTRAM IS HELPING.
--- NOTE | 2020-09-12 19:40 | NUR ---
REPORT RECEIVED. PT SITTING IN CHAIR, NO COMPLAINTS. CALL LIGHT IN REACH
[2020-09-12 20:00] VITALS: BP 130/47
--- NOTE | 2020-09-12 22:00 | NUR ---
IN TO SEE PT. NO COMPLAINTS. CALL LIGHT IN REACH
--- NOTE | 2020-09-12 23:20 | NUR ---
DR. SMITH OKAYED PT TO REMOVE HEART MONITOR FOR SHOWER
[2020-09-13] VITALS: BP 136/70
--- NOTE | 2020-09-13 01:01 | NUR ---
PT REFUSING TO WEAR HEART MONITOR. WILL NOTIFY PHYSICIAN
--- NOTE | 2020-09-13 02:00 | NUR ---
PT LYING IN BED WITH EYES CLOSED. CALL LIGHT IN REACH
[2020-09-13 06:33] LABS: BASO % 0.2 % (0.0-1.0); EOS % 0.1 % (1.0-4.0); HEMATOCRIT 34.7 % (37.0-47.0); LYMPH # 2.1 10*3/uL (1.3-4.4); LYMPH % 10.8 % (27.0-41.0); MEAN CELL VOLUME 96.7 fl (81.0-99.0); MEAN CORPUSCULAR HGB 30.4 pg (27.0-31.0); MEAN CORPUSCULAR HGB CONC 31.4 g/dl (33.0-37.0); MEAN PLATELET VOLUME 9.9 fl (9.6-12.3); NEUT # 16.5 10*3/uL (2.3-7.9); NEUT % 83.1 % (47.0-73.0); PLATELET COUNT AUTOMATED 372 10*3/uL (130-400); RED BLOOD COUNT 3.59 10*6/uL (4.10-5.10); RED CELL DISTRI WIDTH 13.6 % (0-14.5); WHITE BLOOD COUNT 19.8 10*3/uL (4.8-10.8)
[2020-09-13 07:07] LABS: ALBUMIN 3.5 gm/dl (3.1-4.5); ALKALINE PHOSPHATASE 90 U/L (45-117); BUN 21 mg/dl (7-24); CHLORIDE 109 mmol/L (98-107); CREATININE 0.92 mg/dL (0.55-1.02); POTASSIUM 4.4 mmol/L (3.5-5.1); SGOT/AST 24 IU/L (3-35); SGPT/ALT 44 U/L (12-78); SODIUM 139 mmol/L (136-145); TOTAL PROTEIN 6.6 gm/dL (6.4-8.2)
[2020-09-13 07:14] LABS: VITAMIN D, 25-HYDROXY 35.8 ng/mL (30-100)
[2020-09-13 08:00] VITALS: BP 142/75
--- NOTE | 2020-09-13 10:25 | NUR ---
OT NOTE Pt was seen this A.M. 1:1 for 20 minute OT session. Upon arrival pt was supine in bed. Pt identified by name and and had no complaints at this time. Pt presented to therapy with continuous 2L-O2 via Nc which she remained on throughout the entire session. Pt's resting SpO2 read 93%. While sitting EOB pt donned B socks Mi while bringing her leg up to bed level. Sit to stand completed from bed level with CGA followed by functional mobility to the bathroom with CGA. There she transferred on/off standard commode with SBA and use of grab bar for UE support. Clothing management completed with SBA for safety and toilet hygiene completed with supervision while seated. Pt stood sink side while washing her hands, face, and completing hair care with SBA. Throughout pt was educated on energy conservation and work simplification techniques. Pt tolerated aprox 7 minutes of standing activity before sitting due to fatigue. Pt was left sitting upright on the EOB with call light in hand, tray table in place, and phone in reach. Continue with rec D/C plan to home with home health. MARINA Wagner/Diane
--- NOTE | 2020-09-13 11:24 | NUR ---
PHYSICAL THERAPY TREATMENT TIME: IN 10:12 AM 20 MINUTES TOTAL Patient presented to therapy standing after just coming out of restroom. . Patient is on 2 liters of spO2 VIA NASAL CANULA. Patient gives informed consent for treatment. Patient was identified by name and on wristband. Patient performed ambulation with GOLF BALL INSPECTOR for 110' x 2 with 2 liters of spO2 AND PATIENT PUSHED THE O2 TANK as she ambulated. Patient had seated rest break at 110' x 1 and O2 SAT was recorded at 96% and pulse at 98. Prior to walking the O2 SAT was at 92% and pulse at 98%. Patient was left in sitting in bedside chair with call light within reach and O2 connected to wall with 2 liters of spO2. Patient was 1:1 with this COTTON FEEDER for 17 minutes. BATOOL LLAMAS COTTON FEEDER
--- NOTE | 2020-09-13 11:34 | NUR ---
REGLAN,BENADRYL,TYLENOL,TORODOL HELPED.
--- NOTE | 2020-09-13 11:58 | NUR ---
MEDICATED WITH TYLENOL,BENADRYL,REGLAN,AND TORODOL PER ORDER.
[2020-09-13 12:00] VITALS: BP 123/60
--- NOTE | 2020-09-13 12:52 | NUR ---
Surtass Analyst in to talk to patient. Patient states lives at HOME with DAUGHTER. There are NO steps in the home. Physician: [facility] Home health services: NONE Patient's level of ADLs: INDEPENDENT Patient has working utilities: YES DME: NEBULIZER Follow-up physician's appointment after d/c: WILL BE MADE BY HOSPITALIST NURSE DIECTOR ON DISCHARGE Does patient want to access PORTAL?: NO Discharge plan PT LIVES AT HOME WITH HER DAUGHTER AND IS INDEPENDENT IN HER CARE. DENIES SHE WILL HAVE NEEDS AT HOME. PLAN IS TO RETURN HOME WITH DAUGHTER ON DISCHARGE. WILL CONTINUE TO FOLLOW. STATES HER DAUGHTER OR SON IN LAW WILL TAKE HER HOME ON DISCHARGE. . GLORIA VEGAS
--- NOTE | 2020-09-13 14:22 | NUR ---
PHYSICAL THERAPY CO-SIGN I approve of the Physical Therapy notes written above. Dorita Evans PT
--- NOTE | 2020-09-13 14:34 | NUR ---
OCCUPATIONAL THERAPY CO-SIGN I approve of the Occupational Therapy notes written above. EMMANUEL VELAZQUEZ OTR/Diane
[2020-09-13 16:00] VITALS: BP 125/41
[2020-09-13 20:00] VITALS: BP 155/61
[2020-09-14] VITALS: BP 111/43
--- NOTE | 2020-09-14 01:06 | NUR ---
PT REPORTS A HEADACHE, SHE HOWEVER DID NOT WANT TYLENOL ALONE. I CONTACTED DR. TUTTLE AND HE PUT AN ORDER IN FOR REGLAN, BENADRYL, AND TYLENOL WHICH HELPED THE PT EARLIER TODAY.
[2020-09-14 05:53] LABS: BUN 29 mg/dl (7-24); CHLORIDE 110 mmol/L (98-107); CREATININE 1.06 mg/dL (0.55-1.02); POTASSIUM 4.9 mmol/L (3.5-5.1); SODIUM 142 mmol/L (136-145)
[2020-09-14 06:31] LABS: BASO % 0.1 % (0.0-1.0); HEMATOCRIT 35.2 % (37.0-47.0); LYMPH # 2.3 10*3/uL (1.3-4.4); LYMPH % 10.7 % (27.0-41.0); MEAN CELL VOLUME 99.2 fl (81.0-99.0); MEAN CORPUSCULAR HGB CONC 31.3 g/dl (33.0-37.0); MONO # 1.1 10*3/uL (0.1-1.0); MONO % 5.2 % (3.0-9.0); NEUT # 17.5 10*3/uL (2.3-7.9); NEUT % 83.1 % (47.0-73.0); PLATELET COUNT AUTOMATED 359 10*3/uL (130-400); RED BLOOD COUNT 3.55 10*6/uL (4.10-5.10); RED CELL DISTRI WIDTH 13.7 % (0-14.5); WHITE BLOOD COUNT 21.1 10*3/uL (4.8-10.8)
[2020-09-14 08:00] VITALS: BP 150/62
[2020-09-14 12:00] VITALS: BP 136/60
[2020-09-14 16:00] VITALS: BP 126/85
--- NOTE | 2020-09-14 17:15 | NUR ---
TYLENOL GIVEN FOR C/O HEADACHE. WILL MONITOR.
[2020-09-14 20:00] VITALS: BP 126/57
--- NOTE | 2020-09-14 20:49 | NUR ---
MEDICATED WITH TORADOL SLOW IV PUSH & BENADRYL PO FOR C/O HEADACHE.
--- NOTE | 2020-09-14 20:55 | NUR ---
PT. C/O HEADACHE & STATES THAT TYLENOL IS INEFFECTIVE. CALLED M.D. EARLIER; NEW ORDERS RECEIVED. MEDICATED WITH TORADOL & BENADRYL PER PT'S REQUEST FOR C/O HEADACHE. PT. STATES THAT HER PAIN IS A 5/10. WILL CONTINUE TO MONITOR. CALL LIGHT WITHIN REACH.
--- NOTE | 2020-09-14 21:13 | NUR ---
MEDICATED WITH TYLENOL.
--- NOTE | 2020-09-14 21:30 | NUR ---
STATES THAT SHE IS FEELING BETTER. REQUESTING TO TAKE A SHOWER. HEP LOCK WRAPPED TO ENABLE PT. TO GET A SHOWER.
[2020-09-15] VITALS: BP 150/60
--- NOTE | 2020-09-15 06:16 | NUR ---
BLOOD SUGAR 133; NO COVERAGE REQUIRED.
[2020-09-15 06:30] LABS: MEAN CELL VOLUME 97.6 fl (81.0-99.0); MEAN CORPUSCULAR HGB 30.9 pg (27.0-31.0); MEAN CORPUSCULAR HGB CONC 31.7 g/dl (33.0-37.0); MEAN PLATELET VOLUME 10.1 fl (9.6-12.3); PLATELET COUNT AUTOMATED 341 10*3/uL (130-400); RED BLOOD COUNT 3.69 10*6/uL (4.10-5.10); RED CELL DISTRI WIDTH 13.6 % (0-14.5); WHITE BLOOD COUNT 20.4 10*3/uL (4.8-10.8)
[2020-09-15 07:04] LABS: BUN 27 mg/dl (7-24); CHLORIDE 110 mmol/L (98-107); CREATININE 0.86 mg/dL (0.55-1.02); POTASSIUM 4.4 mmol/L (3.5-5.1); SODIUM 142 mmol/L (136-145)
[2020-09-15 08:00] VITALS: BP 156/85
[2020-09-15 08:05] LABS: PLATELET SUFFICIENCY NORMAL (NORMAL); TOTAL CELLS COUNTED 100 #CELLS
[2020-09-15] MEDS ORDERED: AZITHROMYCIN500 M2 PO (11:48)
[2020-09-15] MEDS ORDERED: PREDNISONE10 MG PO (11:48)
[2020-09-15] MEDS ORDERED: MUCUS RELIEF600 MG PO (11:48)
[2020-09-15] MEDS ORDERED: Ipratropium Brom3 ML NEB (11:48)
--- NOTE | 2020-09-15 14:30 | NUR ---
Discharge instructions reviewed with patient/family. Patient receptive and verbalizes understanding. Follow-up care arranged. Written instructions given to patient/family. EVETTE ASKEW
== END 2020-09-15 14:30 | disposition home or self-care (01) | DRG 871 ==
LOC: ED 06:09 → EDHOLD 07:21 → 5E 07:21
PROVIDERS: Emergency Medicine; Internal Medicine; Registered Nurse; Student in an Organized Health Care Education/Training Program; ADMIT Internal Medicine; ATTEND Internal Medicine
DX: A41.9 Sepsis, unspecified organism (principal); J96.01 Acute respiratory failure with hypoxia; J18.9 Pneumonia, unspecified organism; E44.1 Mild protein-calorie malnutrition; J44.1 Chronic obstructive pulmonary disease with (acute) exacerbation; R65.20 Severe sepsis without septic shock; F31.9 Bipolar disorder, unspecified; M10.9 Gout, unspecified; E83.41 Hypermagnesemia; N18.31 Chronic kidney disease, stage 3a; E11.22 Type 2 diabetes mellitus with diabetic chronic kidney disease; E11.65 Type 2 diabetes mellitus with hyperglycemia; E87.8 Other disorders of electrolyte and fluid balance, not elsewhere classified; Z88.0 Allergy status to penicillin; Z88.1 Allergy status to other antibiotic agents; Z79.51 Long term (current) use of inhaled steroids; Z79.82 Long term (current) use of aspirin; Z79.1 Long term (current) use of non-steroidal anti-inflammatories (NSAID); Z79.899 Other long term (current) drug therapy; Z87.891 Personal history of nicotine dependence; Z82.49 Family history of ischemic heart disease and other diseases of the circulatory system; Z68.36 Body mass index [BMI] 36.0-36.9, adult

== ENCOUNTER → 2020-11-21 | Outpatient (CLI) | payer OTHER ==
[~2020-11-21] MED LIST changes: +AZITHROMYCIN500 M2 PO; +LOVASTATIN40 MG PO; +LYRICA50 M1 PO; +MUCUS RELIEF600 MG PO
== END | disposition home or self-care (01) ==
LOC: US 14:30
PROVIDERS: ATTEND Orthopaedic Surgery
DX: N28.1 Cyst of kidney, acquired (principal); N32.89 Other specified disorders of bladder; N28.89 Other specified disorders of kidney and ureter; R93.89 Abnormal findings on diagnostic imaging of other specified body structures

== ENCOUNTER → 2020-11-22 | Outpatient (CLI) | payer OTHER ==
[2020-11-22 09:14] LABS: ALBUMIN 3.6 gm/dl (3.1-4.5); ALKALINE PHOSPHATASE 101 U/L (45-117); BUN 18 mg/dl (7-24); CHLORIDE 109 mmol/L (98-107); CREATININE 1.04 mg/dL (0.55-1.02); POTASSIUM 4.6 mmol/L (3.5-5.1); SGOT/AST 23 IU/L (3-35); SGPT/ALT 38 U/L (12-78); SODIUM 142 mmol/L (136-145)
== END | disposition home or self-care (01) ==
LOC: LAB 08:43
PROVIDERS: ATTEND Orthopaedic Surgery
DX: Z79.899 Other long term (current) drug therapy (principal)

== ENCOUNTER → 2020-11-26 | Outpatient (CLI) | payer OTHER ==
[~2020-11-26] MED LIST changes: +HYDROCODONE-AC1 EAC1 PO
== END | disposition home or self-care (01) ==
LOC: RESCLI 00:04
PROVIDERS: ATTEND Emergency Medicine
DX: I11.0 Hypertensive heart disease with heart failure (principal); I50.22 Chronic systolic (congestive) heart failure; E11.65 Type 2 diabetes mellitus with hyperglycemia; E11.42 Type 2 diabetes mellitus with diabetic polyneuropathy; E66.09 Other obesity due to excess calories; F31.9 Bipolar disorder, unspecified; F41.9 Anxiety disorder, unspecified; M1A.40X0 Other secondary chronic gout, unspecified site, without tophus (tophi); J30.2 Other seasonal allergic rhinitis; M54.32 Sciatica, left side; E78.2 Mixed hyperlipidemia; J44.9 Chronic obstructive pulmonary disease, unspecified; Z79.899 Other long term (current) drug therapy; Z95.0 Presence of cardiac pacemaker; Z79.82 Long term (current) use of aspirin; Z79.84 Long term (current) use of oral hypoglycemic drugs; Z88.0 Allergy status to penicillin

== ENCOUNTER 2021-01-16 13:40 | Emergency (ER) | payer OTHER ==
[~2021-01-16] VITALS: Ht 165.1 cm; Wt 97.5 kg
[~2021-01-16 13:40] MED LIST changes: -HYDROCODONE-AC1 EAC1 PO
[2021-01-16] MEDS ORDERED: MEDROL DOSEPAK4 MG PO (16:54)
[2021-01-16] MEDS ORDERED: HYDROCODONE-AC1 EAC1 PO (16:54)
== END 2021-01-16 17:05 | disposition home or self-care (01) ==
LOC: ED 13:40
DX: S39.012A Strain of muscle, fascia and tendon of lower back, initial encounter (principal); E11.9 Type 2 diabetes mellitus without complications; J44.9 Chronic obstructive pulmonary disease, unspecified; I11.0 Hypertensive heart disease with heart failure; I50.9 Heart failure, unspecified; F31.9 Bipolar disorder, unspecified; F41.9 Anxiety disorder, unspecified; E78.00 Pure hypercholesterolemia, unspecified; F17.200 Nicotine dependence, unspecified, uncomplicated; Z95.0 Presence of cardiac pacemaker; Z88.0 Allergy status to penicillin; Z88.8 Allergy status to other drugs, medicaments and biological substances; Z79.82 Long term (current) use of aspirin; Z79.899 Other long term (current) drug therapy; Z79.2 Long term (current) use of antibiotics; Z98.51 Tubal ligation status; W19.XXXA Unspecified fall, initial encounter; Y93.89 Activity, other specified; Y92.89 Other specified places as the place of occurrence of the external cause; Y99.8 Other external cause status

== ENCOUNTER → 2021-01-27 | Outpatient (CLI) | payer OTHER ==
[~2021-01-27] MED LIST changes: +HYDROCODONE-AC1 EAC1 PO
[2021-01-27 10:27] LABS: BASO # 0.1 10*3/uL (0.0-0.1); BASO % 0.6 % (0.0-1.0); EOS # 0.5 10*3/uL (0.0-0.4); EOS % 2.8 % (1.0-4.0); HEMATOCRIT 39.5 % (37.0-47.0); LYMPH # 3.2 10*3/uL (1.3-4.4); LYMPH % 19.7 % (27.0-41.0); MEAN CELL VOLUME 98.5 fl (81.0-99.0); MEAN CORPUSCULAR HGB 30.7 pg (27.0-31.0); MEAN CORPUSCULAR HGB CONC 31.1 g/dl (33.0-37.0); MEAN PLATELET VOLUME 9.6 fl (9.6-12.3); MONO # 1.1 10*3/uL (0.1-1.0); MONO % 6.7 % (3.0-9.0); NEUT # 11.3 10*3/uL (2.3-7.9); NEUT % 69.7 % (47.0-73.0); PLATELET COUNT AUTOMATED 317 10*3/uL (130-400); RED BLOOD COUNT 4.01 10*6/uL (4.10-5.10); RED CELL DISTRI WIDTH 13.7 % (0-14.5); WHITE BLOOD COUNT 16.2 10*3/uL (4.8-10.8)
[2021-01-27 10:28] LABS: VITAMIN D, 25-HYDROXY 26.1 ng/mL (30-100)
[2021-01-27 10:39] LABS: ALBUMIN 3.5 gm/dl (3.1-4.5); CREATININE 1.22 mg/dL (0.55-1.02); FREE T4 0.86 ng/dl (0.76-1.46); POTASSIUM 4.4 mmol/L (3.5-5.1); TOTAL PROTEIN 7.2 gm/dL (6.4-8.2)
[2021-01-27 10:44] LABS: THYROID STIM HORMONE (HS) 2.04 uIU/ml (0.358-4.75)
== END | disposition home or self-care (01) ==
LOC: LAB 09:30
PROVIDERS: ATTEND Internal Medicine
DX: Z00.00 Encounter for general adult medical examination without abnormal findings (principal); F31.9 Bipolar disorder, unspecified; E11.9 Type 2 diabetes mellitus without complications; I10 Essential (primary) hypertension; E55.9 Vitamin D deficiency, unspecified; M1A.9XX0 Chronic gout, unspecified, without tophus (tophi)

== ENCOUNTER → 2021-02-24 | Outpatient (CLI) | payer OTHER ==
[2021-02-24 08:17] LABS: BASO # 0.1 10*3/uL (0.0-0.1); BASO % 0.8 % (0.0-1.0); EOS # 0.5 10*3/uL (0.0-0.4); EOS % 3.9 % (1.0-4.0); HEMATOCRIT 37.6 % (37.0-47.0); LYMPH # 2.7 10*3/uL (1.3-4.4); LYMPH % 23.4 % (27.0-41.0); MEAN CELL VOLUME 95.9 fl (81.0-99.0); MEAN CORPUSCULAR HGB 30.4 pg (27.0-31.0); MEAN CORPUSCULAR HGB CONC 31.6 g/dl (33.0-37.0); MEAN PLATELET VOLUME 9.6 fl (9.6-12.3); MONO # 0.8 10*3/uL (0.1-1.0); MONO % 6.9 % (3.0-9.0); NEUT # 7.5 10*3/uL (2.3-7.9); NEUT % 64.7 % (47.0-73.0); PLATELET COUNT AUTOMATED 314 10*3/uL (130-400); RED BLOOD COUNT 3.92 10*6/uL (4.10-5.10); RED CELL DISTRI WIDTH 13.6 % (0-14.5); WHITE BLOOD COUNT 11.7 10*3/uL (4.8-10.8)
== END | disposition home or self-care (01) ==
LOC: LAB 07:45
PROVIDERS: ATTEND Internal Medicine
DX: D72.829 Elevated white blood cell count, unspecified (principal)

== ENCOUNTER 2021-06-18 13:16 | Inpatient (IN) | payer OTHER ==
[~2021-06-18] VITALS: Ht 157.4 cm; Wt 96.8 kg
[2021-06-18 13:21] VITALS: BP 125/56
[2021-06-18 15:06] VITALS: BP 111/41
[2021-06-18 15:29] LABS: HEMATOCRIT 36.2 % (37.0-47.0); MEAN CELL VOLUME 96.8 fl (81.0-99.0); MEAN CORPUSCULAR HGB 30.7 pg (27.0-31.0); MEAN CORPUSCULAR HGB CONC 31.8 g/dl (33.0-37.0); MEAN PLATELET VOLUME 10.1 fl (9.6-12.3); PLATELET COUNT AUTOMATED 182 10*3/uL (130-400); RED BLOOD COUNT 3.74 10*6/uL (4.10-5.10); RED CELL DISTRI WIDTH 15.2 % (0-14.5)
[2021-06-18 15:39] LABS: ABG BASE EXCESS -3.6 mmol/L (-2.0-2.0); ARTERIAL BLOOD GAS PH 7.377 (7.35-7.45); ARTERIAL BLOOD GAS PO2 60.2 (80-90)
[2021-06-18 15:46] LABS: ALBUMIN 1.6 gm/dl (3.1-4.5); CREATININE 1.11 mg/dL (0.55-1.02); POTASSIUM 5.4 mmol/L (3.5-5.1); TOTAL PROTEIN 6.9 gm/dL (6.4-8.2)
[2021-06-18 16:06] LABS: ATYPICAL LYMPHS 3 % (0-0); BASOPHILS 1 % (0-1); TOTAL CELLS COUNTED 100 #CELLS
[2021-06-18 16:07] LABS: OVALOCYTES FEW; PLATELET SUFFICIENCY NORMAL (NORMAL)
[2021-06-18 16:08] LABS: BURR CELLS FEW
[2021-06-18 17:09] VITALS: BP 114/52
[2021-06-18 18:48] VITALS: BP 94/43
[2021-06-19 04:09] VITALS: BP 91/38
[2021-06-19 08:07] LABS: HEMATOCRIT 34.2 % (37.0-47.0); MEAN CELL VOLUME 99.7 fl (81.0-99.0); MEAN CORPUSCULAR HGB 30.9 pg (27.0-31.0); MEAN PLATELET VOLUME 9.9 fl (9.6-12.3); PLATELET COUNT AUTOMATED 180 10*3/uL (130-400); RED BLOOD COUNT 3.43 10*6/uL (4.10-5.10); RED CELL DISTRI WIDTH 15.7 % (0-14.5); WHITE BLOOD COUNT 7.8 10*3/uL (4.8-10.8)
[2021-06-19 08:12] VITALS: BP 121/58
[2021-06-19 08:14] LABS: BUN 22 mg/dl (7-24); CHLORIDE 108 mmol/L (98-107); CREATININE 1.09 mg/dL (0.55-1.02); SODIUM 134 mmol/L (136-145)
[2021-06-19 08:35] LABS: BASOPHILS 1 % (0-1); PLATELET SUFFICIENCY NORMAL (NORMAL); TOTAL CELLS COUNTED 100 #CELLS
[2021-06-19 10:55] VITALS: BP 136/71
[2021-06-19 11:21] VITALS: BP 146/80
[2021-06-19] MEDS ORDERED: LOSARTAN POTASS50 M1 PO (11:44)
[2021-06-19] MEDS ORDERED: VITAMIN D350 MC2 PO (11:45)
[2021-06-19] MEDS ORDERED: METFORMIN HYDR500 MG PO (11:46)
[2021-06-19] MEDS ORDERED: PROTONIX IV40 MG PO (11:47)
[2021-06-19] MEDS ORDERED: LIPITOR20 MG PO (11:48)
[2021-06-19] MEDS ORDERED: ANORO ELLIPTA1 EACH INH (11:50)
[2021-06-19] MEDS ORDERED: MIRAPEX0.5 MG PO (11:50)
[2021-06-19] MEDS ORDERED: BIOTIN5000 MC1 PO (11:50)
[2021-06-19] MEDS ORDERED: DICLOFENAC SODI75 M2 PO (11:51)
[2021-06-19 12:01] LABS: BILIRUBIN Negative (Negative); BLOOD Negative (Negative); CLARITY Clear (Clear); COLOR Yellow (Yellow); GLUCOSE Negative (Negative); KETONE Negative (Negative); LEUKO ESTERASE Negative (Negative); NITRITE Negative (Negative); SPECIFIC GRAVITY 1.015 (1.001-1.030); UROBILINOGEN 0.2 E.U./dl (0.0-1.0)
[2021-06-19 12:13] LABS: BACTERIA 1+; MUCOUS TRACE
[2021-06-19 16:00] VITALS: BP 132/62
[2021-06-19 20:00] VITALS: BP 127/45
[2021-06-20] VITALS: BP 116/46
[2021-06-20 06:19] LABS: BASO % 0.1 % (0.0-1.0); EOS % 0.1 % (1.0-4.0); HEMATOCRIT 33.2 % (37.0-47.0); LYMPH % 14.4 % (27.0-41.0); MEAN CORPUSCULAR HGB 30.6 pg (27.0-31.0); MEAN CORPUSCULAR HGB CONC 31.9 g/dl (33.0-37.0); MEAN PLATELET VOLUME 9.5 fl (9.6-12.3); MONO # 0.3 10*3/uL (0.1-1.0); MONO % 4.6 % (3.0-9.0); NEUT # 5.5 10*3/uL (2.3-7.9); NEUT % 80.2 % (47.0-73.0); PLATELET COUNT AUTOMATED 205 10*3/uL (130-400); RED BLOOD COUNT 3.46 10*6/uL (4.10-5.10); RED CELL DISTRI WIDTH 15.3 % (0-14.5); WHITE BLOOD COUNT 6.8 10*3/uL (4.8-10.8)
[2021-06-20 06:36] LABS: BUN 25 mg/dl (7-24); CHLORIDE 105 mmol/L (98-107); CREATININE 1.07 mg/dL (0.55-1.02); POTASSIUM 5.1 mmol/L (3.5-5.1); SODIUM 134 mmol/L (136-145)
[2021-06-20 08:00] VITALS: BP 113/48
== END 2021-06-20 14:05 | disposition home health service (06) | DRG 189 ==
LOC: ED 13:16 → 4E 16:26 → EDHOLD 16:26 → 4E 06-19 10:44
PROVIDERS: Internal Medicine; ADMIT Internal Medicine; ATTEND Internal Medicine
DX: J96.21 Acute and chronic respiratory failure with hypoxia (principal); F41.1 Generalized anxiety disorder; F17.210 Nicotine dependence, cigarettes, uncomplicated; E66.01 Morbid (severe) obesity due to excess calories; F31.9 Bipolar disorder, unspecified; E87.5 Hyperkalemia; R62.7 Adult failure to thrive; I12.9 Hypertensive chronic kidney disease with stage 1 through stage 4 chronic kidney disease, or unspecified chronic kidney disease; N18.30 Chronic kidney disease, stage 3 unspecified; E11.22 Type 2 diabetes mellitus with diabetic chronic kidney disease; E11.649 Type 2 diabetes mellitus with hypoglycemia without coma; R26.2 Difficulty in walking, not elsewhere classified; M1A.9XX0 Chronic gout, unspecified, without tophus (tophi); J43.2 Centrilobular emphysema; Z68.39 Body mass index [BMI] 39.0-39.9, adult; Z88.0 Allergy status to penicillin; Z88.1 Allergy status to other antibiotic agents; Z88.8 Allergy status to other drugs, medicaments and biological substances; Z98.51 Tubal ligation status; Z82.49 Family history of ischemic heart disease and other diseases of the circulatory system

== ENCOUNTER 2021-08-08 08:58 | Emergency (ER) | payer OTHER ==
[~2021-08-08] VITALS: Ht 165.1 cm; Wt 95.3 kg
[~2021-08-08 08:58] MED LIST changes: +ANORO ELLIPTA1 EACH INH; +BIOTIN5000 MC1 PO; +DICLOFENAC SODI75 M2 PO; +LIPITOR20 MG PO; +LOSARTAN POTASS50 M1 PO; +METFORMIN HYDR500 MG PO; +MIRAPEX0.5 MG PO; +PROTONIX IV40 MG PO; +VITAMIN D350 MC2 PO
[2021-08-08 10:09] LABS: BASO # 0.1 10*3/uL (0.0-0.1); BASO % 0.6 % (0.0-1.0); EOS # 1.3 10*3/uL (0.0-0.4); EOS % 9.8 % (1.0-4.0); HEMATOCRIT 38.4 % (37.0-47.0); LYMPH # 2.5 10*3/uL (1.3-4.4); LYMPH % 19.1 % (27.0-41.0); MEAN CELL VOLUME 95.3 fl (81.0-99.0); MEAN CORPUSCULAR HGB 29.8 pg (27.0-31.0); MEAN CORPUSCULAR HGB CONC 31.3 g/dl (33.0-37.0); MEAN PLATELET VOLUME 9.2 fl (9.6-12.3); MONO # 0.6 10*3/uL (0.1-1.0); MONO % 4.7 % (3.0-9.0); NEUT # 8.6 10*3/uL (2.3-7.9); NEUT % 65.5 % (47.0-73.0); PLATELET COUNT AUTOMATED 319 10*3/uL (130-400); RED BLOOD COUNT 4.03 10*6/uL (4.10-5.10); WHITE BLOOD COUNT 13.1 10*3/uL (4.8-10.8)
[2021-08-08 10:25] LABS: ALBUMIN 3.5 gm/dl (3.1-4.5); ALKALINE PHOSPHATASE 114 U/L (45-117); BUN 16 mg/dl (7-24); CHLORIDE 105 mmol/L (98-107); CREATININE 0.91 mg/dL (0.55-1.02); POTASSIUM 4.1 mmol/L (3.5-5.1); SGOT/AST 40 IU/L (3-35); SGPT/ALT 48 U/L (12-78); SODIUM 138 mmol/L (136-145); TOTAL PROTEIN 7.4 gm/dL (6.4-8.2)
[2021-08-08 10:27] LABS: TROPONIN I < 0.015 ng/ml (<0.045)
[2021-08-08] MEDS ORDERED: PREDNISONE10 MG PO (11:59)
[2021-08-08] MEDS ORDERED: DOXYCYCLINE HY100 M3 PO (11:59)
== END 2021-08-08 12:15 | disposition home or self-care (01) ==
LOC: ED 08:58
PROVIDERS: Family Medicine
DX: J40 Bronchitis, not specified as acute or chronic (principal); Z20.822 Contact with and (suspected) exposure to COVID-19; F17.200 Nicotine dependence, unspecified, uncomplicated; Z88.0 Allergy status to penicillin; Z88.1 Allergy status to other antibiotic agents; Z79.899 Other long term (current) drug therapy; Z79.82 Long term (current) use of aspirin

== ENCOUNTER 2021-10-28 10:54 | Emergency (ER) | payer OTHER ==
[~2021-10-28] VITALS: Ht 165.1 cm; Wt 99.8 kg
[~2021-10-28 10:54] MED LIST changes: +DOXYCYCLINE HY100 M3 PO
[2021-10-28 11:59] LABS: BASO # 0.1 10*3/uL (0.0-0.1); BASO % 0.3 % (0.0-1.0); EOS # 0.3 10*3/uL (0.0-0.4); EOS % 2.1 % (1.0-4.0); HEMATOCRIT 33.8 % (37.0-47.0); LYMPH # 1.9 10*3/uL (1.3-4.4); LYMPH % 12.3 % (27.0-41.0); MEAN CELL VOLUME 96.6 fl (81.0-99.0); MEAN CORPUSCULAR HGB 29.4 pg (27.0-31.0); MEAN CORPUSCULAR HGB CONC 30.5 g/dl (33.0-37.0); MONO # 0.8 10*3/uL (0.1-1.0); MONO % 4.9 % (3.0-9.0); NEUT # 12.4 10*3/uL (2.3-7.9); NEUT % 79.6 % (47.0-73.0); PLATELET COUNT AUTOMATED 263 10*3/uL (130-400); RED CELL DISTRI WIDTH 15.7 % (0-14.5); WHITE BLOOD COUNT 15.6 10*3/uL (4.8-10.8)
[2021-10-28 12:16] LABS: ALBUMIN 3.1 gm/dl (3.1-4.5); ALKALINE PHOSPHATASE 132 U/L (45-117); CHLORIDE 106 mmol/L (98-107); CREATININE 1.01 mg/dL (0.55-1.02); POTASSIUM 4.3 mmol/L (3.5-5.1); SGOT/AST 74 IU/L (3-35); SODIUM 139 mmol/L (136-145); TOTAL PROTEIN 6.7 gm/dL (6.4-8.2)
[2021-10-28 12:30] LABS: BUN 17 mg/dl (7-24); SGPT/ALT 111 U/L (12-78)
[2021-10-28] MEDS ORDERED: PREDNISONE10 MG PO (13:18)
[2021-10-28] MEDS ORDERED: Ipratropium Brom3 ML INH (13:18)
[2021-10-28] MEDS ORDERED: ZITHROMAX250 MG PO (13:18)
== END 2021-10-28 13:45 | disposition home or self-care (01) ==
LOC: ED 10:54
PROVIDERS: Student in an Organized Health Care Education/Training Program
DX: J18.9 Pneumonia, unspecified organism (principal); Z20.822 Contact with and (suspected) exposure to COVID-19; I50.9 Heart failure, unspecified; Z88.0 Allergy status to penicillin; Z88.1 Allergy status to other antibiotic agents; Z88.8 Allergy status to other drugs, medicaments and biological substances; Z79.899 Other long term (current) drug therapy; Z79.82 Long term (current) use of aspirin